=== PATIENT | male | born 1995 | race Caucasian/White ===

== ENCOUNTER 2022-08-18 03:30 | Emergency (ER) | payer SELFPAY ==
[~2022-08-18] VITALS: Ht 180.3 cm; Wt 68.0 kg
[2022-08-18 03:30] VITALS: BP 144/90; PULSE 66; RESP 17; TEMP 98; O2SAT 100
[2022-08-18 03:35] VITALS: BP 144/90; PULSE 66; RESP 17; TEMP 98; O2SAT 100
--- NOTE | 2022-08-18 03:36 | NUR ---
Dr. Whitfield examining patient.
--- NOTE | 2022-08-18 03:42 | NUR ---
PT PER ALS. TAKEN TO BED 8
[2022-08-18] MEDS ORDERED: LIDOCAINE 1% 500 MG/ 50 ML VIAL INJ ONE (03:55)
--- NOTE | 2022-08-18 03:59 | NUR ---
PT TAKEN TO CT
[2022-08-18] MEDS ORDERED: ACETAMINOPHEN EXTRA STRENGTH 500 MG TAB PO ONE (04:00)
[2022-08-18] MEDS ORDERED: LIDOCAINE MPF 1% 5 ML ONE (04:04)
--- NOTE | 2022-08-18 04:06 | NUR ---
PT RETURN FROM CT
--- NOTE | 2022-08-18 04:18 | NUR ---
Dr. Whitfield at bedside
--- NOTE | 2022-08-18 04:36 | NUR ---
APPLIED NON ADHERENT AND GAUZE ROLL TO WOUND ON L LEG.
--- NOTE | 2022-08-18 05:50 | NUR ---
Patient discharged by ER MD Whitfield.
== END 2022-08-18 05:50 | disposition home or self-care (01) ==
LOC: MED 03:30
DX: S81.812A Laceration without foreign body, left lower leg, initial encounter (principal); S09.90XA Unspecified injury of head, initial encounter; F12.90 Cannabis use, unspecified, uncomplicated; Y04.2XXA Assault by strike against or bumped into by another person, initial encounter; Y93.89 Activity, other specified; Y92.89 Other specified places as the place of occurrence of the external cause; Y99.8 Other external cause status
CPT/HCPCS: 70450; 90471; 90715; 99285; J2001

== ENCOUNTER 2022-12-10 03:02 | Emergency (ER) | payer OTHER ==
[~2022-12-10] VITALS: Ht 182.9 cm; Wt 79.4 kg
[2022-12-10 03:15] VITALS: BP 120/70; PULSE 80; RESP 16; TEMP 97.4; O2SAT 99
[2022-12-10 03:40] LABS: BASOPHILS # (AUTO) 0.1 K/uL (0.00-0.22); BASOPHILS % (AUTO) 0.6 % (0.0-2.0); EOSINOPHILS # (AUTO) 0.5 K/uL (0-0.4); EOSINOPHILS % (AUTO) 5.1 % (0.0-4.0); HEMOGLOBIN 13.8 g/dL (12.0-18.0); LYMPHOCYTES # (AUTO) 2.4 K/uL (2.0-11.5); LYMPHOCYTES % (AUTO) 23.1 % (20.5-51.1); MEAN CORPUSCULAR HEMOGLOBIN 33 pg (27-31); MEAN CORPUSCULAR HGB CONC 34 g/dL (33-37); MEAN CORPUSCULAR VOLUME 94.6 fL (80-94); MONOCYTES # (AUTO) 1.1 K/uL (0.8-1.0); NEUTROPHILS # (AUTO) 6.1 K/uL (1.8-7.7); NEUTROPHILS % (AUTO) 60.2 % (42.2-75.2); PLATELET COUNT (AUTO) 201 K/uL (140-450); RED BLOOD CELL COUNT(AUTO) 4.23 MIL/uL (4.20-6.10); RED CELL DISTRIBUTION WIDTH 12.8 % (11.6-13.7); WHITE BLOOD COUNT (AUTO) 10.2 K/uL (4.8-10.8)
[2022-12-10 04:01] LABS: ALANINE AMINOTRANSFERASE 92 U/L (12-78); ALBUMIN 4.2 g/dL (3.4-5.0); ALCOHOL, BLOOD < 3 mg/dL (<10); ALKALINE PHOSPHATASE 62 U/L (50-136); ANION GAP 15.8 (8-16); ASPARTATE AMINOTRANSFERASE 44 U/L (15-37); CALCIUM 8.8 mg/dL (8.5-10.1); CARBON DIOXIDE 29.9 mmol/L (21-32); CHLORIDE 98 mmol/L (98-107); GFR ARICAN-AMERICAN 20 mL/min (>90); GFR NON ARICAN-AMERICAN 16 mL/min (>90); GLUCOSE 93 mg/dL (74-106); POTASSIUM 3.7 mmol/L (3.5-5.1); SALICYLATE 3.8 mg/dL (2.8-20.0); SODIUM SERUM 140 mmol/L (136-145); TOTAL BILIRUBIN 0.3 mg/dL (0.0-1.0); TOTAL PROTEIN, SERUM 7.6 g/dL (6.4-8.2); UREA NITROGEN, BLOOD 18 mg/dL (7-18)
[2022-12-10 04:03] LABS: CREATININE 4.7 mg/dL (0.6-1.3)
[2022-12-10 04:04] LABS: ACETAMINOPHEN < 0.5 ug/ml (10-30)
[2022-12-10] MEDS ORDERED: NACL 0.9% 2,000 ML IV ONE (04:10)
[2022-12-10 07:03] LABS: ANION GAP 9.1 (8-16); CALCIUM 8.1 mg/dL (8.5-10.1); POTASSIUM 4.1 mmol/L (3.5-5.1)
[2022-12-10 07:13] LABS: AMPHETAMINE, URINE NEGATIVE ng/ml (NEG <=1000); BARBITURATE, URINE NEGATIVE ng/ml (NEG <=200); BENZODIAZEPINE, URINE NEGATIVE ng/mL (NEG <=200); CANNABINOID, URINE NEGATIVE ng/mL (NEG <=50); COCAINE, URINE NEGATIVE ng/mL (NEG <=300); OPIATE, URINE NEGATIVE ng/mL (NEG <=2000); PHENCYCLIDINE SCREEN,URINE NEGATIVE ng/mL (NEG <=25)
[2022-12-10 07:28] VITALS: O2SAT 98
[2022-12-10 09:27] VITALS: O2SAT 98
[2022-12-10] MEDS ORDERED: ESCITALOPRAM 20 MG TAB PO SCH (09:45)
[2022-12-10 11:28] VITALS: O2SAT 99
[2022-12-10 13:27] VITALS: O2SAT 99
[2022-12-10 14:43] VITALS: BP 139/83; PULSE 64; RESP 16; TEMP 97.1; O2SAT 98
[2022-12-10] MEDS ORDERED: QUEtiapine FUMARATE 100 MG TAB PO SCH (21:00)
== END 2022-12-10 14:44 ==
LOC: MED 03:02
DX: R45.851 Suicidal ideations (principal); Z20.822 Contact with and (suspected) exposure to COVID-19; F32.A Depression, unspecified; Z91.51 Personal history of suicidal behavior
CPT/HCPCS: 36415; 80048; 80053; 80305; 85025; 87426; 96360; 96361; 99285; G0480; G0482; J7030

== ENCOUNTER 2023-10-27 17:06 | Emergency (ER) | payer MEDICAID, OTHER ==
[~2023-10-27] VITALS: Ht 180.3 cm; Wt 82.8 kg
[2023-10-27 17:15] VITALS: BP 120/74; PULSE 75; RESP 15; TEMP 98.1; O2SAT 100
[2023-10-27 17:20] VITALS: O2SAT 98
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
--- NOTE | 2023-10-27 17:29 | NUR ---
LAB AT BEDSIDE
[2023-10-27 17:44] LABS: BASOPHILS % (AUTO) 0.5 % (0.0-2.0); EOSINOPHILS # (AUTO) 0.3 K/uL (0-0.4); EOSINOPHILS % (AUTO) 4.2 % (0.0-4.0); HEMATOCRIT 42.8 % (36-52); HEMOGLOBIN 14.4 g/dL (12.0-18.0); LYMPHOCYTES # (AUTO) 1.9 K/uL (2.0-11.5); LYMPHOCYTES % (AUTO) 24.6 % (20.5-51.1); MEAN CORPUSCULAR HEMOGLOBIN 32 pg (27-31); MEAN CORPUSCULAR HGB CONC 34 g/dL (33-37); MEAN CORPUSCULAR VOLUME 94.5 fL (80-94); MONOCYTES # (AUTO) 0.7 K/uL (0.8-1.0); MONOCYTES % (AUTO) 8.4 % (1.7-9.3); NEUTROPHILS # (AUTO) 4.8 K/uL (1.8-7.7); NEUTROPHILS % (AUTO) 62.3 % (42.2-75.2); PLATELET COUNT (AUTO) 224 K/uL (140-450); RED BLOOD CELL COUNT(AUTO) 4.53 MIL/uL (4.20-6.10); RED CELL DISTRIBUTION WIDTH 13.1 % (11.6-13.7); WHITE BLOOD COUNT (AUTO) 7.7 K/uL (4.8-10.8)
[2023-10-27 17:53] LABS: ANION GAP 10.5 (8-16); CALCIUM 9.3 mg/dL (8.5-10.1); CARBON DIOXIDE 30.9 mmol/L (21-32); POTASSIUM 3.4 mmol/L (3.5-5.1)
[2023-10-27 17:55] LABS: AMPHETAMINE, URINE NEGATIVE ng/ml (NEG <=1000); BARBITURATE, URINE NEGATIVE ng/ml (NEG <=200); BENZODIAZEPINE, URINE NEGATIVE ng/mL (NEG <=200); CANNABINOID, URINE POSITIVE ng/mL (NEG <=50); COCAINE, URINE NEGATIVE ng/mL (NEG <=300); OPIATE, URINE NEGATIVE ng/mL (NEG <=2000); PHENCYCLIDINE SCREEN,URINE NEGATIVE ng/mL (NEG <=25)
--- NOTE | 2023-10-27 18:09 | NUR ---
MD STEVENS AT BEDSIDE EVALUATING PT
[2023-10-27 18:14] LABS: ACETAMINOPHEN < 0.5 ug/ml (10-30); ALCOHOL, BLOOD < 3 mg/dL (<10); SALICYLATE < 2.8 mg/dL (2.8-20.0)
--- NOTE | 2023-10-27 18:47 | NUR ---
TELEPSYCH PERICO EVALUATING PT
--- NOTE | 2023-10-27 19:15 | NUR ---
Pt report given to TABATHA CANTOR. Transfer of care at this time.
--- NOTE | 2023-10-27 19:15 | NUR ---
RECEIVED REPORT FROM DEVAUGHN BERNARD. CONTINUE PLAN OF CARE AT THIS TIME.
[2023-10-27 19:25] VITALS: O2SAT 98
--- NOTE | 2023-10-27 19:30 | NUR ---
The patient's care was reviewed and supervised by VAISHALI GAGNON RN.
[2023-10-27] MEDS: QUEtiapine FUMARATE 25 MG TAB PO ONE (20:58)
--- NOTE | 2023-10-27 21:10 | NUR ---
KENYA HERNANDEZ AT BEDSIDE TO WRITE [id number] HOLD.
--- NOTE | 2023-10-27 21:33 | NUR ---
PACKET FAXED TO [facility]
--- NOTE | 2023-10-27 23:32 | NUR ---
SPOKE WITH MARIANO ROBERTS AT [facility] FOR REPORT .
--- NOTE | 2023-10-28 02:31 | NUR ---
PT CONTINUES TO REST IN BED WITH NO S/S PAIN OR DISTRESS. RESPIRATIONS EVEN AND UNLABORED. SAFETY MEASURES IN PLACE.
--- NOTE | 2023-10-28 05:24 | NUR ---
PT RESTING IN BED WITH NO S/S PAIN OR DISTRESS. RESPIRATIONS EVEN AND UNLABORED. SAFETY MEASURES IN PLACE. PT IN VIEW OF NURSES STATION.
--- NOTE | 2023-10-28 06:00 | NUR ---
ASSUME CARE FOR PATIENT
--- NOTE | 2023-10-28 06:14 | NUR ---
PATIENT IS RESTING IN BED. BREATHING EVEN AND UNLABORED.
--- NOTE | 2023-10-28 07:09 | NUR ---
PATIENT IN BED, RESTING, BREATHING EVEN AND UNLABORED.
--- NOTE | 2023-10-28 07:16 | NUR ---
PATIENT WOKEN UP FOR VITALS. OFFERED PATIENT FOOD AND DRINK.
--- NOTE | 2023-10-28 07:21 | NUR ---
Report recieved from MARIANO Gaitan for transfer of care.
--- NOTE | 2023-10-28 07:59 | NUR ---
[facility] at bedside
[2023-10-28 08:01] VITALS: BP 107/64; PULSE 61; RESP 18; TEMP 97.6; O2SAT 96
--- NOTE | 2023-10-28 08:01 | NUR ---
Patient to be transferred to [facility]. Is being transferred due to [id number]. Receiving facility has accepting physician and available space. ER physician has signed transfer form. Patient or responsible democrat has agreed to transfer and signed form. Patient belongings inventoried and will be sent with patient. Copy of nursing notes, lab reports, EKG, Physicians Orders and X-rays to be sent with patient. Report called to MARIANO George at receiving facility. [facility] ambulance service has been called for transfer. ETA is theresa.
--- NOTE | 2023-10-28 08:20 | NUR ---
Chart checked and completed. The patient's care was reviewed and supervised by ARTURO LORA RN.
[2023-10-28] MEDS ORDERED: ESCITALOPRAM 20 MG TAB PO SCH (09:00)
[2023-10-28] MEDS ORDERED: QUEtiapine FUMARATE 25 MG TAB PO SCH (21:00)
== END 2023-10-28 08:01 ==
LOC: MED 17:06
DX: R45.851 Suicidal ideations (principal); Z20.822 Contact with and (suspected) exposure to COVID-19; Z86.69 Personal history of other diseases of the nervous system and sense organs
CPT/HCPCS: 36415; 80048; 80305; 85025; 87426; 99285; G0480; G0482